=== PATIENT | male | born 2000 | race Caucasian/White ===

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

== ENCOUNTER 2022-04-11 20:59 | Emergency (ER) | payer OTHER ==
[~2022-04-11] VITALS: Ht 175.3 cm; Wt 59.1 kg
[2022-04-11 21:28] LABS: COVID AG,FIA SOURCE NASAL SWAB
[2022-04-11 21:42] LABS: APPEARANCE,URINE CLEAR (CLEAR); BILIRUBIN,URINE NEGATIVE (NEGATIVE); GLUCOSE, URINE (UA) NEGATIVE (NEGATIVE); KETONES,URINE NEGATIVE (NEGATIVE); LEUKOCYTE ESTERASE ,URINE NEGATIVE (NEGATIVE); NITRATE,URINE NEGATIVE (NEGATIVE); OCCULT BLOOD,URINE NEGATIVE (NEGATIVE); PROTEIN,URINE NEGATIVE (NEGATIVE); SPECIFIC GRAVITIY, URINE 1.024 (1.003-1.030); UROBILINOGEN,URINE <=1.0 mg/dL (<=1.0)
[2022-04-11 21:48] VITALS: BP 128/69
[2022-04-11 21:49] LABS: BACTERIA,URINE None Seen /HPF (None Seen); RBC,URINE None Seen /HPF (0-2); SQUAMOUS EPITHELIAL CELL,UR Rare /LPF (None Seen); WBC,URINE 0-2 /HPF (0-5)
[2022-04-11 21:53] LABS: INFLUENZA TYPE A NEGATIVE FOR TYPE A (NEGATIVE); INFLUENZA TYPE B NEGATIVE FOR TYPE B (NEGATIVE)
[2022-04-11] MEDS ORDERED: MELA10TA PO (22:30)
== END 2022-04-11 23:10 | disposition home or self-care (01) ==
LOC: EMS 21:02
DX: G47.00 Insomnia, unspecified (principal); F41.9 Anxiety disorder, unspecified; F12.90 Cannabis use, unspecified, uncomplicated; Z20.822 Contact with and (suspected) exposure to COVID-19
CPT/HCPCS: 81001; 87804; 99283

== ENCOUNTER 2022-06-20 18:21 | Emergency (ER) | payer OTHER ==
[~2022-06-20] VITALS: Ht 175.3 cm; Wt 59.1 kg
[~2022-06-20 18:21] MED LIST changes: -HYD25 PO; +MELATONIN10 MG PO
[2022-06-20 18:28] VITALS: BP 120/73
[2022-06-20] MEDS ORDERED: LIDOCAINE/PF 1% 2 ML VIAL IM ONE (20:30)
[2022-06-20] MEDS ORDERED: ACETAMINOPHEN 325 MG TABLET PO ONE (20:30)
[2022-06-20] MEDS ORDERED: CefTRIAXone SODIUM 1 GM/VIAL IM ONE (20:30)
[2022-06-20 20:50] LABS: APPEARANCE,URINE HAZY (CLEAR); BILIRUBIN,URINE NEGATIVE (NEGATIVE); GLUCOSE, URINE (UA) NEGATIVE (NEGATIVE); KETONES,URINE NEGATIVE (NEGATIVE); LEUKOCYTE ESTERASE ,URINE LARGE (NEGATIVE); NITRATE,URINE NEGATIVE (NEGATIVE); OCCULT BLOOD,URINE SMALL (NEGATIVE); PH,URINE 7.5 (5.0-8.0); PROTEIN,URINE TRACE mg/dL (NEGATIVE); SPECIFIC GRAVITIY, URINE 1.003 (1.003-1.030); UROBILINOGEN,URINE <=1.0 mg/dL (<=1.0)
[2022-06-20 20:56] LABS: WBC,URINE 51-100 /HPF (0-5)
[2022-06-20 20:57] LABS: AMORPHOUS SEDIMENT,UR Few /LPF (None Seen); BACTERIA,URINE Few /HPF (None Seen); SQUAMOUS EPITHELIAL CELL,UR Few /LPF (None Seen)
[2022-06-20] MEDS ORDERED: DOXY-354 PO (21:03)
== END 2022-06-20 21:18 | disposition home or self-care (01) ==
LOC: EMS 18:23
DX: N34.2 Other urethritis (principal); F41.9 Anxiety disorder, unspecified; R56.9 Unspecified convulsions; F12.90 Cannabis use, unspecified, uncomplicated
CPT/HCPCS: 99283; 81001; 87086; 87186; 87491; 87591; 96372; J0696; J3490

== ENCOUNTER 2022-11-27 12:43 | Emergency (ER) | payer OTHER ==
[~2022-11-27] VITALS: Ht 172.7 cm; Wt 56.8 kg
[~2022-11-27 12:43] MED LIST changes: +DOXY-354 PO
[2022-11-27 13:07] VITALS: BP 103/71; PULSE 83; RESP 16; TEMP 99.2
[2022-11-27 13:15] LABS: COVID AG,FIA SOURCE NASAL SWAB
[2022-11-27 13:40] LABS: INFLUENZA TYPE A NEGATIVE FOR TYPE A (NEGATIVE); INFLUENZA TYPE B NEGATIVE FOR TYPE B (NEGATIVE)
[2022-11-27 13:45] LABS: SARS-COV2 (COVID) ANTIGEN,FIA Positive (Negative)
[2022-11-27] MEDS ORDERED: DIPH50CA37 PO (16:47)
[2022-11-27] MEDS ORDERED: HYDR-4072 PO (16:47)
[2022-11-27] MEDS ORDERED: GUAIFDM PO (16:50)
[2022-11-27] MEDS ORDERED: IBUP-1554 PO (16:50)
== END 2022-11-27 17:08 | disposition home or self-care (01) ==
LOC: EMS 12:49
DX: J06.9 Acute upper respiratory infection, unspecified (principal); G47.00 Insomnia, unspecified; F41.9 Anxiety disorder, unspecified; F12.90 Cannabis use, unspecified, uncomplicated; Z20.822 Contact with and (suspected) exposure to COVID-19
CPT/HCPCS: 87804; 99283

== ENCOUNTER 2023-08-07 22:40 | Emergency (ER) | payer OTHER ==
[~2023-08-07] VITALS: Ht 172.7 cm; Wt 61.8 kg
[~2023-08-07 22:40] MED LIST changes: +DIPH50CA37 PO; +GUAIFDM PO; +HYDR-4072 PO; +IBUP-1554 PO
[2023-08-07 23:06] VITALS: TEMP 98.1
[2023-08-08] MEDS ORDERED: AZIT250T9 PO (00:56)
[2023-08-08] MEDS ORDERED: IBUP-1506 PO (00:56)
[2023-08-08 01:00] VITALS: BP 125/63; PULSE 74; RESP 16
== END 2023-08-08 01:14 | disposition home or self-care (01) ==
LOC: EMS 22:41
DX: H00.011 Hordeolum externum right upper eyelid (principal); R56.9 Unspecified convulsions; F41.9 Anxiety disorder, unspecified; F12.90 Cannabis use, unspecified, uncomplicated
CPT/HCPCS: 99282; Z7502

== ENCOUNTER 2024-01-18 21:44 | Emergency (ER) | payer OTHER ==
[~2024-01-18] VITALS: Ht 175.3 cm; Wt 59.1 kg
[~2024-01-18 21:44] MED LIST changes: +IBUP-1506 PO
[2024-01-18 22:16] VITALS: TEMP 98.3
[2024-01-18 23:35] VITALS: BP 118/68; PULSE 70; RESP 18; O2SAT 100
== END 2024-01-19 00:06 | disposition home or self-care (01) ==
LOC: EMS 21:44
DX: H00.11 Chalazion right upper eyelid (principal); F12.90 Cannabis use, unspecified, uncomplicated; G40.909 Epilepsy, unspecified, not intractable, without status epilepticus; F41.9 Anxiety disorder, unspecified
CPT/HCPCS: 99282; Z7502